=== PATIENT | female | born 1995 | race Two or more races ===

== ENCOUNTER 2018-07-03 11:45 | Outpatient (CLI) | payer SELFPAY | END 2018-07-03 13:30 | disposition home or self-care (01) | LOC: OBT 11:45 → L-D 11:47 → OBT 13:30 | DX: O36.8330 Maternal care for abnormalities of the fetal heart rate or rhythm, third trimester, not applicable or unspecified (principal); Z3A.36 36 weeks gestation of pregnancy | CPT/HCPCS: 76818 ==

== ENCOUNTER 2019-01-13 21:11 | Emergency (ER) | payer MEDICAID ==
[2019-01-14] MEDS: HYDROCODONE/APAP (5/325) TAB PO (01:21)
[2019-01-14 01:31] LABS: ADD UMIC NO; UR ASCORBIC ACID NEGATIVE (NEGATIVE); UR BILIRUBIN (Dip) NEGATIVE (NEGATIVE); UR BLOOD (Dip) NEGATIVE (NEGATIVE); UR CLARITY CLEAR (CLEAR); UR COLOR YELLOW (YELLOW); UR GLUCOSE (Dip) NEGATIVE (NEGATIVE); UR KETONES (Dip) NEGATIVE (NEGATIVE); UR LEUKOCYTE ESTERASE (Dip) NEGATIVE Leu/ul (NEGATIVE); UR NITRITE (Dip) NEGATIVE (NEGATIVE); UR SPECIFIC GRAVITY (Dip) 1.023 (1.003-1.030); UR TOTAL PROTEIN (Dip) NEGATIVE (NEGATIVE); UR UROBILINOGEN (Dip) NEGATIVE (NEGATIVE)
== END 2019-01-14 02:51 | disposition home or self-care (01) ==
LOC: FTE 21:11
DX: B34.9 Viral infection, unspecified (principal); R07.89 Other chest pain; F41.9 Anxiety disorder, unspecified
CPT/HCPCS: 71046; 81003; 81025; 87400; 93005; 99285-25